=== PATIENT | female | born 1930 | race Caucasian/White ===

== ENCOUNTER 2017-02-10 13:22 | Emergency (ER) | payer MEDICARE, MEDICAID ==
--- NOTE | 2017-02-10 13:58 | RAD ---
FOUR VIEWS OF THE RIGHT KNEE: DATE: 02/10/17. HISTORY: Right leg pain following a fall. FINDINGS: The bones are demineralized. There is no displaced fracture or dislocation. There is no knee joint effusion. IMPRESSION: No displaced fracture or evidence of dislocation. POS: [facility]
[2017-02-10] MEDS ORDERED: Acetaminophen 500 MG TAB ONE ×2 (16:12)
[2017-02-10 17:55] LABS: #Lymphocytes 1.1 thou/uL (1.20-3.40); #Neutrophils 15.3 thou/uL (1.40-6.50); %Basophils 0.2 % (0.0-1.0); %Eosinophils 0.1 % (0.0-10.0); %Lymphocytes 6.4 % (21.0-51.0); %Monocytes 5.8 % (0.0-10.0); Hematocrit 34.2 % (36.0-47.0); Mean Platelet Volume 7.9 fL (7.4-10.4); Red Blood Cell (RBC) Count 3.55 mill/uL (4.20-5.40); White Blood Cell (WBC) Count 17.5 thou/uL (4.8-10.8)
[2017-02-10 18:17] LABS: ALT (SGPT) 19 U/L (8-55); AST (SGOT) 16 U/L (5-34); Alkaline Phosphatase 61 U/L (40-150); Anion Gap 13 mmol/L (10-20); BUN (Urea Nitrogen) 37 mg/dL (9.8-20.1); Calc. Creatinine Clearance 0 mL/min (70-130); Calcium 9.3 mg/dL (7.8-10.44); Carbon Dioxide 20 mmol/L (23-31); Chloride 102 mmol/L (98-107); Estimated GFR-MDRD 31; Globulin 2.5 g/dL (2.4-3.5); Protein, Total 6.3 g/dL (6.0-8.3)
[2017-02-10 18:47] LABS: Bilirubin Negative (Negative); Blood, Urine Negative (Negative); Glucose, Urine (Dipstick) Negative (Negative); Ketone, Urine Negative (Negative); Nitrite Negative (Negative); Protein, Urine (Dipstick) Negative (Neg-Trace); Urobilinogen 0.2 mg/dL (0.2-1.0)
--- NOTE | 2017-02-10 19:43 | RAD ---
AP CHEST: History: Trauma with chest pain. Date: 02-10-17 Comparison: 11-03-13 FINDINGS: There is a large hiatal hernia. The lungs are well aerated. No evidence of active intrathoracic disease seen. No evidence of effusion s, pneumonia or pneumothorax seen. IMPRESSION: Hiatal hernia, otherwise unremarkable AP view of the chest. POS: [facility]
== END 2017-02-10 21:10 ==
LOC: ERS 13:22
DX: S89.91XA Unspecified injury of right lower leg, initial encounter (principal); K21.9 Gastro-esophageal reflux disease without esophagitis; I10 Essential (primary) hypertension; V89.9XXA Person injured in unspecified vehicle accident, initial encounter
CPT/HCPCS: 36415; 51701; 71010; 80053; 81003; 85025; 87086; A4353

== ENCOUNTER 2017-02-18 11:09 | Outpatient (CLI) | payer MEDICARE, MEDICAID ==
--- NOTE | 2017-02-18 13:47 | RAD ---
RIGHT HIP TWO VIEWS: History: Right hip pain. Fracture. FINDINGS: Comminuted fracture extending from the greater to lesser trochanter includes multiple fragments, varu s angulation, and shortening. Osseous structures are demineralized. There is calcification in the art erial structures. IMPRESSION: 1. Comminuted intertrochanteric right hip fracture. 2. Osteoporosis. 3. Atherosclerosis. Findings were called to Dr. Quintana at 1140 hours. Code CR. POS: [facility]
== END 2017-02-18 11:10 | disposition home or self-care (01) ==
LOC: RAD 11:09
PROVIDERS: ATTEND Physical Medicine & Rehabilitation
DX: M25.551 Pain in right hip (principal); S72.091A Other fracture of head and neck of right femur, initial encounter for closed fracture; M81.0 Age-related osteoporosis without current pathological fracture; I70.90 Unspecified atherosclerosis

== ENCOUNTER 2017-02-18 11:59 | Inpatient (IN) | payer MEDICARE, MEDICAID ==
[~2017-02-18 11:59] MED LIST: Dexamethasone 20 MG/5 ML VIAL ONE; Lidocaine 1% PF 5 ML VIAL ONE; Ondansetron HCl/PF 4 MG/2 ML Vial ONE; PROPOFOL 200 MG/20 ML VIAL ONE; Succinylcholine Chloride 20 MG/ML 10 ml SYRINGE FS ONE; ePHEDrine/0.9% NaCl/PF SYRINGE 50 mg/10 ml ONE
[2017-02-18] MEDS ORDERED: Ondansetron HCl/PF 4 MG/2 ML Vial ONE (12:32)
[2017-02-18] MEDS ORDERED: Morphine 4 MG/ML VIAL ONE (12:32)
[2017-02-18 13:37] LABS: #Eosinphils 0.2 thou/uL (0.0-0.7); #Monocytes 0.9 thou/uL (0.11-0.59); #Neutrophils 6.5 thou/uL (1.40-6.50); %Basophils 0.4 % (0.0-1.0); %Eosinophils 1.9 % (0.0-10.0); %Lymphocytes 11.4 % (21.0-51.0); %Monocytes 10.6 % (0.0-10.0); %Neutrophils 75.7 % (42.0-75.0); Hemoglobin 9.2 g/dL (12.0-16.0); Mean Corpuscular HGB CONC 33.3 g/dL (32.0-36.0); Mean Corpuscular Hemoglobin 32.3 pg (27.0-31.0); Mean Corpuscular Volume 96.9 fl (81.0-99.0); Mean Platelet Volume 7.6 fL (7.4-10.4); Platelet Count 296 thou/uL (130-400); RBC Distribution Width 11.6 % (11.5-14.5); Red Blood Cell (RBC) Count 2.85 mill/uL (4.20-5.40); White Blood Cell (WBC) Count 8.6 thou/uL (4.8-10.8)
[2017-02-18 13:42] LABS: INR-International Normal Ratio 1.2; PTT 39.8 SEC (22.9-36.1); Prothrombin Time 15.7 SEC (12.0-14.7)
[2017-02-18 13:45] LABS: Anion Gap 10 mmol/L (10-20); BUN (Urea Nitrogen) 59 mg/dL (9.8-20.1); Calc. Creatinine Clearance 0 mL/min (70-130); Calcium 9.3 mg/dL (7.8-10.44); Carbon Dioxide 28 mmol/L (23-31); Chloride 91 mmol/L (98-107); Estimated GFR-MDRD 27; Glucose 122 mg/dL (83-110); Potassium 4.4 mmol/L (3.5-5.1); Sodium 125 mmol/L (136-145)
[2017-02-18 13:51] LABS: CKMB 1.7 ng/mL (0-6.6)
[2017-02-18] MEDS ORDERED: Fentanyl 100 MCG/2 ML VIAL ONE ×4 (14:26→18:51)
[2017-02-18] MEDS ORDERED: Labetalol HCl 100 MG/20 ML VIAL ONE (15:01)
[2017-02-18] MEDS ORDERED: CEFAZOLIN/Water 2 GM/20 ML SYRINGE ONE (16:57)
[2017-02-18] MEDS ORDERED: hydrALAZINE 20 MG/ML VIAL ONE (18:17)
--- NOTE | 2017-02-18 18:36 | HP ---
DATE OF ADMISSION: 02/18/2017 REQUESTING PHYSICIAN: Daphnie Recinos DO ATTENDING SURGEON: Bernardo Stephens M.D. CONSULTATIONS: Orthopedics, Luis Wilkinson M.D. HISTORY OF PRESENT ILLNESS: The patient is an 86-year-old woman who reportedly fell while transferring out of a vehicle last week. She reportedly fell and struck her right knee, was brought to the emergency department, evaluated and examined and was noted to have a contusion to her right kn ee. At that time, the patient had denied right hip pain. She was able to be placed in a rehab and o cezar the past several days, has had increasing right hip pain and was noted to have some significant e cchymosis on her right hip and a complaint now of significant right hip pain while trying to work wit h physical therapy. The patient was brought to the emergency department and underwent evaluation and is noted to have a right hip fracture which was displaced, at which time we were asked to admit the patient and obtain orthopedic consultations. According to rehabilitation records and history by the daughter, there was no report of repeat fall. ALLERGIES: None. CURRENT MEDICATIONS: Carvedilol, Cipro, clonidine, esomeprazole, fexofenadine, hydralazine, hydrochl orothiazide, loratadine, losartan, multivitamin, pantoprazole, and Kenalog. PAST MEDICAL HISTORY: Gastroesophageal reflux disease, colon cancer, hypertension. PAST SURGICAL HISTORY: Colon resection. SOCIAL HISTORY: The patient denies drug, alcohol, or tobacco use. Prior to her initial fall, she li mayra at home. She was currently residing in [facility] prior to this admissi on. REVIEW OF SYSTEMS: A 10-point review of systems was negative, unless otherwise stated. PHYSICAL EXAMINATION: VITAL SIGNS: Blood pressure 192/78, heart rate 68, respirations 18, oxygen saturation is 94% on room air. GENERAL: The patient is resting comfortably in the emergency room bed. She is awake and will answer some simple questions and follows simple commands. The daughter reports that she is significantly h clare of hearing and does not have the best recall which she has noticed over the past, has been declin ing having be repeatedly reminded of things and told things. HEENT: Head is normocephalic, atraumatic. Eyes: Extraocular motion intact. PERRLA bilaterally. E ars are atraumatic without discharge. Oropharynx is clear. Nose is atraumatic without discharge. NECK: Nontender. Trachea is midline. No JVD. CHEST: Clear to auscultation with moderate inspiratory and expiratory effort primarily due to patien t's ability to follow commands. ABDOMEN: Soft, flat, nontender. HEART: Regular rate and rhythm. PELVIS: Stable. EXTREMITIES: Right hip is noted to have a large area of ecchymosis and is tender to palpation to the right hip. The patient is neurovascularly intact distally and extremities are neurovascularly intac t x4. BACK: By report, back is nontender and atraumatic. LABORATORY FINDINGS: White blood cell count 8.6, hemoglobin 9.2, hematocrit 27.6, platelets 296. So dium 125, potassium 4.4, chloride 91, CO2 of 28, BUN 59, creatinine 1.81, glucose 122. PTT 40, PT 16 , INR 1.2. CK-MB 1.7, troponin 0.010. RADIOGRAPHIC FINDINGS: The right hip show a displaced intertrochanteric fracture. ASSESSMENT AND PLAN: 1. Status post ground level fall approximately one week ago. 2. Displaced right hip fracture. 3. Hyponatremia. 4. Acute pain due to trauma. 5. Deconditioning. Plan will be to admit the patient to the surgical floor, have her n.p.o., await evaluation and formal consultation by Orthopedics, pain control, pulmonary toilet, and gastritis and mechanical DVT prophy laxis. Evaluation, examination, laboratory and radiographic findings were all discussed with Dr. Logan griffin at the time of dictation, he was in agreement with this plan.
[2017-02-18] MEDS ORDERED: hydrALAZINE 20 MG/ML VIAL SLOW IVP SCH (18:45)
--- NOTE | 2017-02-18 20:29 | OP ---
DATE OF SURGERY: 02/18/2017. PREOPERATIVE DIAGNOSIS: Right intertrochanteric femur fracture, comminuted. POSTOPERATIVE DIAGNOSIS: Right intertrochanteric femur fracture, comminuted. SURGICAL PROCEDURE: TFN nail, right intertrochanteric fracture. ANESTHESIA: General. SURGEON: Luis Wilkinson M.D. BEVEL OPERATOR: None. IMPLANTS: Synthes TFN 12 x 170 mm nail with a 90 mm hip screw and a 5.0 mm distal cross lock screw. COMPLICATIONS: None. DRAINS: None. SPECIMEN: None. OUTCOME: Satisfactory. INDICATIONS: The patient is an 86-year-old lady who took a fall a week ago sustaining trauma to her right lower extremity. Earlier today x-rays were obtained while she was at a rehabilitation facility and she was found to have an intertrochanteric femur fracture. As such, she is transported to [facility] for orthopedic evaluation. DESCRIPTION OF PROCEDURE: The patient was brought to the operating room and appropriate timeout perf ormed, and then patient was positioned on the OR table after general anesthesia. The right leg was h eld in longitudinal traction with the left leg slightly scissored to allow for AP and lateral imaging . Next, a sterile prep and drape was performed on the right lateral thigh. A small skin incision wa s made proximal to the tip of the greater trochanter. After skin was sharply incised, dissection was carried down bluntly such that the tip of the trochanter could be palpated. A threaded guidewire wa s then passed from the tip of the greater trochanter into the proximal femoral canal. Once appropria tely positioned, the reaming device was passed over this guidewire further opening the proximal canal to accept the nail. Next, a 12 x 170 mm TFN nail was passed from the starting point into the proxim al femoral shaft. Once appropriately positioned, a second incision was made distal to the first and then the jig for the hip screw was inserted into the thigh. With C-arm guidance, she was positioned appropriately and then a threaded guidewire was passed from the lateral cortex of the femur up the fe moral neck and into the femoral head in a near center-center position. Next, measurement off the pin was used to determine the hip screw length of 90 mm. Reamer was then passed over the threaded guide wire. The 90 mm hip screw was then inserted without difficulty. The locking mechanism proximally cameron pierson engaged, then backed off a half turn to allow for sliding of the hip screw. The jig was then remov ed and then the triple sleeve was passed through the appropriate hole for distal cross-locking using the same distal skin incision. A single distal cross lock screw was inserted without difficulty. At the completion of this, all instruments were removed from the nail, then AP, lateral C-arm images we re obtained. The two incisions were irrigated with normal saline and then closed in layers with 2-0 Vicryl followed by simone. A Xeroform gauze and tape dressing was applied to the thigh and then pat ient was transported to recovery room in stable condition. Patient tolerated the procedure well. Th ere were no complications.
[2017-02-18] MEDS ORDERED: Morphine 4 MG/ML Carpuject IVP PRN (20:37)
[2017-02-18] MEDS ORDERED: Ondansetron HCl/PF 4 MG/2 ML Vial IVP PRN ×2 (20:37→21:22)
[2017-02-18] MEDS ORDERED: hydrALAZINE 20 MG/ML VIAL SLOW IVP PRN (20:37)
[2017-02-18] MEDS ORDERED: Dextrose 5% in Water 1,000 ML IV PRN (20:37)
[2017-02-18] MEDS ORDERED: Dextrose 50% Abboject 50 ML SYRINGE SLOW IVP PRN (20:37)
[2017-02-18] MEDS ORDERED: CEFAZOLIN/Water 2 GM/20 ML SYRINGE SLOW IVP SCH (20:37)
[2017-02-18] MEDS ORDERED: Ondansetron ODT 4 MG TAB PO PRN (20:37)
--- NOTE | 2017-02-18 20:46 | RAD ---
RIGHT HIP RADIOGRAPHS TWO VIEWS 02/18/17 PROVIDED CLINICAL HISTORY: ORIF. FINDINGS: Comparison 02/18/17. Spot fluoroscopic frontal and lateral views of the right hip demonstrate interval reduction and inter nal fixation of previously described right proximal femoral intertrochanteric fracture with resultant improved alignment. IMPRESSION: As above. POS: [facility]
[2017-02-18] MEDS ORDERED: Famotidine 20 MG TAB PO SCH (21:00)
[2017-02-18] MEDS ORDERED: Morphine 4 MG/ML VIAL IV PRN (21:15)
[2017-02-18] MEDS ORDERED: Promethazine HCl 25 MG/ML VIAL SLOW IVP PRN (21:22)
[2017-02-18] MEDS ORDERED: Promethazine HCl 25 MG/ML VIAL IM PRN (21:22)
[2017-02-18] MEDS: Morphine 4 MG/ML VIAL IV PRN (21:25)
[2017-02-18] MEDS ORDERED: CEFAZOLIN 1 GM VIAL SLOW IVP SCH (22:00)
[2017-02-19] MEDS: Morphine 4 MG/ML VIAL IV PRN (01:19)
[2017-02-19] MEDS: CEFAZOLIN 1 GM, Syringe 2.5 ML in Sterile Water 7.5 ML SLOW IVP SCH ×4 (01:20→18:50)
[2017-02-19 04:55] VITALS: BMI 20.1
[2017-02-19] MEDS: Sodium Chloride 0.9% 1,000 ML IV SCH ×2 (05:13→05:23)
[2017-02-19 06:17] LABS: #Basophils 0.1 thou/uL (0.0-0.2); #Lymphocytes 0.5 thou/uL (1.20-3.40); #Monocytes 0.6 thou/uL (0.11-0.59); #Neutrophils 6.8 thou/uL (1.40-6.50); %Basophils 0.7 % (0.0-1.0); %Eosinophils 0.4 % (0.0-10.0); %Lymphocytes 5.6 % (21.0-51.0); %Monocytes 7.7 % (0.0-10.0); %Neutrophils 85.6 % (42.0-75.0); Mean Corpuscular HGB CONC 33.7 g/dL (32.0-36.0); Mean Corpuscular Hemoglobin 33.1 pg (27.0-31.0); Mean Corpuscular Volume 98.4 fl (81.0-99.0); Mean Platelet Volume 7.4 fL (7.4-10.4); Platelet Count 281 thou/uL (130-400); RBC Distribution Width 11.8 % (11.5-14.5); Red Blood Cell (RBC) Count 2.73 mill/uL (4.20-5.40)
[2017-02-19 06:37] LABS: Anion Gap 13 mmol/L (10-20); BUN (Urea Nitrogen) 44 mg/dL (9.8-20.1); Calc. Creatinine Clearance 22 mL/min (70-130); Calcium 8.6 mg/dL (7.8-10.44); Carbon Dioxide 22 mmol/L (23-31); Chloride 100 mmol/L (98-107); Estimated GFR-MDRD 34; Glucose 120 mg/dL (83-110); Potassium 4.9 mmol/L (3.5-5.1); Sodium 130 mmol/L (136-145)
[2017-02-19] MEDS: Ibuprofen 200 MG TAB PO SCH ×2 (11:45→20:56)
[2017-02-19] MEDS: Acetaminophen 500 MG TAB PO SCH ×4 (11:45→22:59)
[2017-02-19] MEDS: traMADol HCl 50 MG TAB PO PRN (17:55)
--- NOTE | 2017-02-19 18:50 | PRG ---
DATE OF SERVICE: 02/19/2017 SUBJECTIVE: The patient is hospital day #2 status post ground level fall where she sustained a right hip fracture. The patient is postop day #1 status post open reduction and internal fixation of the same. She tolerated this procedure well today. She is in bed. Her pain is controlled. She is tole rating a diet. The patient has not started to work with physical therapy yet, but that is expected t o begin today. PHYSICAL EXAMINATION: VITAL SIGNS: Temperature is 97.8, heart rate 77, blood pressure 131/68, respirations 16, oxygen satu ration is 100% on 2 L via nasal cannula. GENERAL: The patient is resting comfortably in bed. She is awake and she is answering some very sim ple questions when spoken very loudly. The patient states that she is not in any pain currently. HEENT: Unremarkable. CHEST: Clear to auscultation bilaterally. HEART: Regular rate and rhythm. ABDOMEN: Soft, flat, nontender with active bowel sounds. EXTREMITIES: Neurovascularly intact x4. LABORATORY FINDINGS: White blood cell count 8.0, hemoglobin 9.0, hematocrit 26.8, platelets 281. So dium 130, potassium 4.9, chloride 100, CO2 of 22, BUN 44, creatinine 1.45, glucose 120. There are no radiographs to review this morning. ASSESSMENT AND PLAN: 1. Status post ground level fall approximately 1 week ago that has became displaced and the patient now has undergone open reduction and internal fixation of the same. 2. Hyponatremia, resolving. 3. Acute pain, currently controlled. Plan will be to continue physical and occupational therapy. The case workers discussed placement of the patient in a skilled facility versus rehabilitation. Gastritis, mechanical DVT prophylaxis. We will plan to start Lovenox tomorrow. The evaluation and examination were discussed with Dr. Stephens after rounds.
[2017-02-19] MEDS: Famotidine 20 MG TAB PO SCH (20:57)
[2017-02-20] MEDS: Acetaminophen 500 MG TAB PO SCH ×7 (03:51→22:54)
[2017-02-20] MEDS: Ibuprofen 200 MG TAB PO SCH ×3 (03:51→19:58)
--- NOTE | 2017-02-20 11:49 | PRG ---
DATE OF SERVICE: 02/20/2017 SUBJECTIVE: The patient is hospital day #3 status post ground level fall in which she sustained a ri ght hip fracture. She is postop day #2 from open reduction internal fixation of the same. The patie nt has had no issues overnight. This morning, she is sleeping, but will open her eyes when I speak l oudly to her. PHYSICAL EXAMINATION: VITAL SIGNS: Temperature is 97.7, heart rate 75, blood pressure 149/56, respirations 12, oxygen satu ration is 96% on 2 liters via nasal cannula. GENERAL: The patient appears to be resting comfortably in bed. Again, she will open her eyes with l oud verbal stimuli and will follow very simple commands and answer primarily by nodding her head whic h appears to be her baseline. HEENT: Unremarkable. LUNGS: Clear to auscultation with shallow breaths. HEART: Regular rate and rhythm. ABDOMEN: Soft, flat, nontender with hypoactive bowel sounds. EXTREMITIES: Capillary refill less than 3 seconds. Pulses are 2+ in all 4 extremities. LABORATORY DATA: Radiographs were reviewed this morning. ASSESSMENT: 1. Status post ground level fall that occurred one week prior to presentation. 2. Status post open reduction internal fixation of hip fracture. PLAN: Continue physical and occupational therapy and await placement. The family is looking at a [facility] care home facility and we are hoping to get approval of that either today or tomorrow. We will continue all supportive care as previously directed. This case was discussed with Dr. Stephens this morning during rounds.
[2017-02-20] MEDS: traMADol HCl 50 MG TAB PO PRN ×2 (15:44→22:55)
[2017-02-20] MEDS: Famotidine 20 MG TAB PO SCH (20:02)
[2017-02-20] MEDS: hydrALAZINE 25 MG TAB PO SCH (20:02)
[2017-02-20] MEDS ORDERED: Enoxaparin Sodium 30 MG/0.3 ML SYRINGE SC SCH (21:00)
[2017-02-21] MEDS: Acetaminophen 500 MG TAB PO SCH ×2 (03:15→06:58)
[2017-02-21] MEDS: Ibuprofen 200 MG TAB PO SCH (03:55)
[2017-02-21 06:24] LABS: #Basophils 0.1 thou/uL (0.0-0.2); #Eosinphils 0.1 thou/uL (0.0-0.7); #Lymphocytes 1.4 thou/uL (1.20-3.40); #Monocytes 0.8 thou/uL (0.11-0.59); #Neutrophils 4.4 thou/uL (1.40-6.50); %Basophils 0.9 % (0.0-1.0); %Eosinophils 2.1 % (0.0-10.0); %Lymphocytes 20.2 % (21.0-51.0); %Monocytes 12.1 % (0.0-10.0); %Neutrophils 64.8 % (42.0-75.0); Mean Corpuscular HGB CONC 33.9 g/dL (32.0-36.0); Mean Corpuscular Hemoglobin 33.6 pg (27.0-31.0); Mean Corpuscular Volume 99.1 fl (81.0-99.0); Platelet Count 279 thou/uL (130-400); Red Blood Cell (RBC) Count 2.39 mill/uL (4.20-5.40); White Blood Cell (WBC) Count 6.8 thou/uL (4.8-10.8)
[2017-02-21 06:49] LABS: Anion Gap 10 mmol/L (10-20); BUN (Urea Nitrogen) 32 mg/dL (9.8-20.1); Calc. Creatinine Clearance 26 mL/min (70-130); Calcium 8.6 mg/dL (7.8-10.44); Carbon Dioxide 25 mmol/L (23-31); Chloride 102 mmol/L (98-107); Estimated GFR-MDRD 41; Glucose 89 mg/dL (83-110); Magnesium 1.7 mg/dL (1.6-2.6); Phosphorus 2.9 mg/dL (2.3-4.7); Potassium 4.1 mmol/L (3.5-5.1); Sodium 133 mmol/L (136-145)
[2017-02-21 08:26] VITALS: BP 150/66; TEMP 98
[2017-02-21] MEDS ORDERED: Carvedilol 25 MG TAB PO SCH (09:00)
[2017-02-21] MEDS ORDERED: Hydrochlorothiazide 25 MG TAB PO SCH (09:00)
--- NOTE | 2017-02-21 09:07 | PQF ---
CLINICAL DOCUMENTATION IMPROVEMENT CLARIFICATION FORM: ICD-10 Updated PLEASE DO AN ADDENDUM TO THE PROGRESS NOTE WITH ANY DOCUMENTATION UPDATES OR ADDITIONS AND CARRY THROUGH TO DC SUMMARY. THANK YOU. DATE: 02/21 ATTN: DR. MUÑOZ Please exercise your independent, professional judgment in responding to the clarification form. Clinical indicators are provided on the bottom of this form for your review Please check appropriate box(s): [ ] Acute Renal Failure (ARF) / Acute Kidney Injury (SULY) [ ] Other Etiology or underlying conditions related to the diagnosis of ARF/ SULY: [ ] Acute on Chronic Renal Failure please specify Stage of CKD (see below) [ ] CKD without ARF/SULY please specify Stage of CKD [ x ] Other diagnosis Dehydration causing elevated creatitine, normal before DC [ ] Unable to determine National Kidney Foundation Guidelines for CKD Staging Stage I Kidney damage with normal or increased GFR GFR > 90 Stage II Kidney damage with mildly decreased GFR GFR 60-89 Stage III Kidney damage with moderately decreased GFR GFR 30-59 Stage IV Kidney damage with severely decreased GFR GFR 16-29 Stage V Kidney failure GFR<15 ESRD End Stage Renal Disease On dialysis For continuity of documentation, please document condition throughout progress notes and discharge summary. Thank You. CLINICAL INDICATORS - SIGNS / SYMPTOMS / LABS BUN: 59 CR: 1.81 GFR: 27 (02/18, ADMIT) 44 1.45 34 (02/19) 32 1.24 32 (02/21) RISK: R HIP FRACTURE S/P REPAIR ADVANCED AGE HX HTN TREATMENT: IVF (NS 02/18 - ) SERIAL BMP THANK YOU! Cecilia (This form is maintained as a part of the permanent medical record) 2014 [employer]. All Rights Reserved Cecilia Nagy RN, BSN [email or web address] Office: [phone] [facility]
[2017-02-21] MEDS: hydrALAZINE 25 MG TAB PO SCH (09:37)
--- NOTE | 2017-02-21 14:11 | DIS ---
DATE OF ADMISSION: 02/18/2017 DATE OF DISCHARGE: 02/21/2017 CONSULTATIONS: Orthopedics, Dr. Wilkinson PROCEDURES: TFN nail, right intertrochanteric fracture. DISCHARGE DIAGNOSES: 1. Status post ground level fall approximately 1 week ago. 2. Displaced right hip fracture. 3. Hyponatremia. 4. Acute pain due to trauma. 5. Deconditioning. HOSPITAL SUMMARY: The patient is an 86-year-old woman who was reportedly transferring from a vehicle to her wheelchair when she fell landing on her knees. She was brought to the Emergency Department, evaluated, examined that day, primarily her knee which was her chief complaint, was found to be unrem arkable. The patient would be admitted to the rehab facility and after a few days, continued to have pain that radiated to her hip and it was noted during her nursing care that she had a contusion to h er right hip. She underwent a radiograph which showed a displaced right femoral neck fracture at [facility] time she was transported here to the hospital for us to admit and obtain orthopedic consultation. The patient would undergo her above procedure. She tolerated this procedure well and would eventual ly be discharged to a fci facility. At the time of discharge, the patient's pain was con trolled. She was tolerating a diet, but she was making minimal advancements in physical therapy so m oving her to a fci facility was agreed upon by the family and we made that happened. The patient will follow up with Dr. Wilkinson in 10-14 days, sooner as needed. The patient may also foll ow up with Trauma as needed.
--- NOTE | 2017-03-01 13:49 | EKG ---
Test Reason : FALL Blood Pressure : / mmHG Vent. Rate : 068 BPM Atrial Rate : 068 BPM P-R Int : 146 ms QRS Dur : 086 ms QT Int : 412 ms P-R-T Axes : 092 026 068 degrees QTc Int : 438 ms Normal sinus rhythm Junctional ST depression, probably normal Borderline ECG Confirmed by MARIAELENA PEARSON ([id number]), scientific publications editor MARCO TALBERT ([id number]) on 03/01/2017 1:49:07 PM Referred By: MICHEL Confirmed By:MARIAELENA PEARSON
== END 2017-02-21 10:49 | DRG 481 ==
LOC: ERS 11:59 → SURG A 20:24
PROVIDERS: ADMIT Surgery; ATTEND Surgery
PROC: 0QS604Z Reposition Right Upper Femur with Internal Fixation Device, Open Approach (ICD-10-PCS; principal; 2017-02-18)
DX: S72.141A Displaced intertrochanteric fracture of right femur, initial encounter for closed fracture (principal); E87.1 Hypo-osmolality and hyponatremia; I10 Essential (primary) hypertension; K21.9 Gastro-esophageal reflux disease without esophagitis; Z85.038 Personal history of other malignant neoplasm of large intestine; Z90.49 Acquired absence of other specified parts of digestive tract; W18.30XA Fall on same level, unspecified, initial encounter; G89.11 Acute pain due to trauma
CPT/HCPCS: 36415; 76001; 80048; 82553; 83735; 84100; 84484; 85025; 85610; 85730; 93005; 96374; 96375; A4216; C1713; G0390; G8978-GP-CL; G8979-GP-CK; G8987-GO-CL; G8988-GO-CJ; J0360; J0690; J1100; J1650; J2001; J2270; J2405; J2704; J3010

== ENCOUNTER 2017-03-11 16:11 | Inpatient (IN) | payer MEDICARE, MEDICAID ==
[2017-03-11 17:32] LABS: #Eosinphils 0.2 thou/uL (0.0-0.7); #Lymphocytes 0.9 thou/uL (1.20-3.40); #Monocytes 0.6 thou/uL (0.11-0.59); #Neutrophils 3.9 thou/uL (1.40-6.50); %Basophils 0.6 % (0.0-1.0); %Eosinophils 3.5 % (0.0-10.0); %Lymphocytes 16.4 % (21.0-51.0); %Neutrophils 68.4 % (42.0-75.0); Hemoglobin 9.7 g/dL (12.0-16.0); Mean Corpuscular HGB CONC 32.8 g/dL (32.0-36.0); Mean Corpuscular Hemoglobin 32.8 pg (27.0-31.0); Mean Platelet Volume 6.9 fL (7.4-10.4); Platelet Count 332 thou/uL (130-400); RBC Distribution Width 12.2 % (11.5-14.5); Red Blood Cell (RBC) Count 2.96 mill/uL (4.20-5.40); White Blood Cell (WBC) Count 5.7 thou/uL (4.8-10.8)
[2017-03-11 17:39] LABS: INR-International Normal Ratio 1.3; Prothrombin Time 16.1 SEC (12.0-14.7)
[2017-03-11 17:40] LABS: PTT 46.2 SEC (22.9-36.1)
[2017-03-11 18:03] LABS: ALT (SGPT) 8 U/L (8-55); AST (SGOT) 9 U/L (5-34); Albumin 3.4 g/dL (3.4-4.8); Alkaline Phosphatase 110 U/L (40-150); Anion Gap 11 mmol/L (10-20); BUN (Urea Nitrogen) 25 mg/dL (9.8-20.1); Bilirubin, Total 0.4 mg/dL (0.2-1.2); Calc. Creatinine Clearance 0 mL/min (70-130); Calcium 9.1 mg/dL (7.8-10.44); Carbon Dioxide 26 mmol/L (23-31); Chloride 102 mmol/L (98-107); Estimated GFR-MDRD 41; Globulin 2.6 g/dL (2.4-3.5); Glucose 78 mg/dL (83-110); Sodium 135 mmol/L (136-145)
[2017-03-11 18:50] LABS: Bilirubin Negative (Negative); Blood, Urine Negative (Negative); Clarity CLOUDY (Clear); Glucose, Urine (Dipstick) Negative (Negative); Leukocyte Moderate (Negative); Nitrite Negative (Negative); Protein, Urine (Dipstick) Negative (Neg-Trace); Specific Gravity, Urine 1.012 (1.002-1.036); Urobilinogen 0.2 mg/dL (0.2-1.0)
[2017-03-11 18:52] LABS: Hyaline Casts/LPF 0-3 HYALINE CAST LPF (0-3 Hyaline); RBC/HPF 0-3 HPF (0-3); Squamous Epithelial None Seen HPF (0-3); WBC/HPF 21-50 HPF (0-3)
[2017-03-11 18:54] LABS: Yeast-AUWi Flag 46.6 (0-25.0)
[2017-03-11 19:06] LABS: Bacteria/HPF 1+ HPF (None Seen); Yeast-All Forms 1+ HPF (None Seen)
[2017-03-11] MEDS ORDERED: Ondansetron ODT 4 MG TAB PO PRN (20:09)
[2017-03-11] MEDS ORDERED: FLU VACC TS2017-18 (>65YR) 0.5 ML SYRINGE IM ONE (21:00)
[2017-03-11] MEDS: Acetaminophen 500 MG TAB PO SCH (22:10)
[2017-03-11] MEDS: Ferrous Sulfate 325 MG TAB PO SCH (22:10)
[2017-03-11] MEDS: hydrALAZINE 25 MG TAB PO SCH (22:10)
[2017-03-11] MEDS: traZODone HCl 50 MG TAB PO SCH (22:11)
[2017-03-12] MEDS: Sodium Chloride 0.9% 1,000 ML IV SCH ×3 (01:07→15:14)
[2017-03-12] MEDS: Acetaminophen 500 MG TAB PO SCH ×6 (01:07→20:35)
[2017-03-12] MEDS: traMADol HCl 50 MG TAB PO PRN (01:07)
[2017-03-12] MEDS: Carvedilol 25 MG TAB PO SCH (05:49)
[2017-03-12] MEDS: hydrALAZINE 25 MG TAB PO SCH ×2 (09:13→20:35)
[2017-03-12] MEDS: Hydrochlorothiazide 25 MG TAB PO SCH (09:13)
[2017-03-12] MEDS: Ferrous Sulfate 325 MG TAB PO SCH ×2 (09:14→20:35)
[2017-03-12] MEDS ORDERED: Fentanyl 100 MCG/2 ML VIAL ONE ×2 (12:25→14:12)
[2017-03-12] MEDS ORDERED: Propofol 200 MG/20 ML VIAL ONE (13:42)
[2017-03-12] MEDS ORDERED: ePHEDrine/0.9% NaCl/PF SYRINGE 50 mg/10 ml ONE (13:42)
[2017-03-12] MEDS ORDERED: Lidocaine 1% PF 5 ML VIAL ONE (13:42)
[2017-03-12] MEDS ORDERED: Ondansetron HCl/PF 4 MG/2 ML Vial ONE (13:42)
[2017-03-12] MEDS ORDERED: Promethazine HCl 25 MG/ML VIAL SLOW IVP PRN (14:07)
[2017-03-12] MEDS ORDERED: Ondansetron HCl/PF 4 MG/2 ML Vial IVP PRN (14:07)
[2017-03-12] MEDS ORDERED: Promethazine HCl 25 MG/ML VIAL IM PRN (14:07)
[2017-03-12] MEDS: cefTRIAXone\\ROCEPHIN 2 GM in Sodium Chloride 0.9% 100 ML IVPB SCH (15:13)
--- NOTE | 2017-03-12 15:52 | OP ---
DATE OF PROCEDURE: 03/12/2017 PREOPERATIVE DIAGNOSIS: Right lateral thigh infection status post insertion of a TFN nail. POSTOPERATIVE DIAGNOSIS: Right lateral thigh infection status post insertion of a TFN nail. SURGICAL PROCEDURE: Incision and drainage of right subcutaneous thigh abscess. ANESTHESIA: General. SURGEON: Lusi Wilkinson M.D. DRAINS: Hemovac x1. COMPLICATIONS: None. SPECIMEN: Aspirate as well as swabs x2 sent for Gram stain culture and sensitivity. OUTCOME: Satisfactory. INDICATIONS: Patient is a pleasant 87-year-old lady who is now nearly a month status post right TFN placement for an intertrochanteric femur fracture. The patient had an uncomplicated hospital course and was doing well in her fdc facility until approximately 1 week ago when she began to d evelop some serous drainage from the proximal insertion site of the nail. On evaluation, she was fou nd to have some mild edema of the skin and some serosanguineous drainage. Her white count was only 5 .7, however, her C-reactive protein was elevated in light of the ongoing drainage, now months followi ng surgery, we decided to proceed to the operating room for incision and drainage and irrigation. In formed consent has been obtained and all questions answered. DESCRIPTION OF PROCEDURE: The patient was brought to the operating room and timeout performed then g eneral anesthesia induced. Next, the patient was positioned supine with just a slight bump under the right hip to allow for sterile prep and drape of the right lateral thigh. Next, a scalpel was used to open up the previous skin incision site. Once opened, some very minor amount of cervical purulent material was encountered in the subcutaneous tissue. My finger was swept in the wound and there was found to be no other areas of infection and this did not appear to violate the fascia of the gluteus . As such, this was then irrigated with 3 liters of normal saline. A final inspection was performed and no necrotic material was encountered. As such, a Hemovac drain was then placed and then 2-0 Felipe ryl followed by nylon used for skin closure. A Xeroform gauze and tape dressing was applied to the t high and patient was transferred to recovery room in stable condition. She tolerated the procedure w ell. We will await the cultures and then proceed with appropriate antibiotic treatment for this supe rficial infection.
[2017-03-12 19:39] VITALS: BMI 25.4
[2017-03-12] MEDS ORDERED: Labetalol HCl 100 MG/20 ML VIAL SLOW IVP PRN (20:05)
--- NOTE | 2017-03-12 20:05 | PDOC.PN ---
- Subjective Encounter Start Date: 03/12/17 Encounter Start Time: 20:03 Pt seen for management of medical comorbidities including hypertension. Denies chest pain, shortness of breath, fevers or chills. Denies hip pain. - Objective MAR Reviewed: Yes Vital Signs & Weight: Vital Signs (12 hours) Temp Pulse Resp BP BP Pulse Ox 03/12/17 16:20 98.2 F 85 18 163/72 H 96 03/12/17 14:50 97.9 F 69 16 97 03/12/17 09:13 91 150/55 H Weight Weight 148 lb I&O: 03/11/17 03/12/17 03/13/17 06:59 06:59 06:59 Intake Total 690 1300 Output Total 1000 Balance -310 1300 Result Diagrams: 03/11/17 17:23 03/11/17 17:23 Phys Exam - Physical Examination Constitutional: NAD HEENT: moist MMs Neck: supple Respiratory: clear to auscultation bilateral Cardiovascular: RRR Gastrointestinal: soft s/p R hip surgery Neurological: moves all 4 limbs Psychiatric: normal affect Dx/Plan (1) HTN (hypertension) Code(s): I10 - ESSENTIAL (PRIMARY) HYPERTENSION Status: Chronic (2) GERD (gastroesophageal reflux disease) Code(s): K21.9 - GASTRO-ESOPHAGEAL REFLUX DISEASE WITHOUT ESOPHAGITIS Status: Chronic (3) Glaucoma Code(s): H40.9 - UNSPECIFIED GLAUCOMA Status: Chronic - Plan plan discussed w/ family, continue antibiotics, PT/OT, out of bed/ambulate * .Monitor vital signs, titrate antihypertensives as needed. Start PRN IV hydralazine, PRN IV labetalol. Continue PPI. Review of Systems - Review of Systems Cardiovascular: negative: chest pain, palpitations, orthopnea, paroxysmal nocturnal dyspnea, edema, light headedness, other Gastrointestinal: negative: Nausea, Vomiting, Abdominal Pain, Diarrhea, Constipation, Melena, Hematochezia - Medications/Allergies Allergies/Adverse Reactions: Allergies Allergy/AdvReac Type Severity Reaction Status Date / Time No Known Allergies Allergy Unverified 02/19/17 11:18 Medications: Current Medications Acetaminophen (Tylenol) 500 mg PO Q4HR [facility] Last Admin: 03/12/17 17:01 Dose: 500 mg Albuterol/Ipratropium (Duoneb) 3 ml NEB Q4H PRN PRN Reason: SOB &/or Wheezing Carvedilol (Coreg) 25 mg PO QAM [facility] Last Admin: 03/12/17 05:49 Dose: 25 mg Ferrous Sulfate (Feosol) 325 mg PO BID [facility] Last Admin: 03/12/17 09:14 Dose: 325 mg Hydralazine HCl (Apresoline) 25 mg PO BID [facility] Last Admin: 03/12/17 09:13 Dose: 25 mg Hydralazine HCl (Apresoline) 10 mg SLOW IVP Q8H PRN PRN Reason: SBP>170 Hydrochlorothiazide (Hydrochlorothiazide) 25 mg PO DAILY [facility] Last Admin: 03/12/17 09:13 Dose: 25 mg Sodium Chloride (Normal Saline 0.9%) 1,000 mls @ 75 mls/hr IV .[id number] [facility] Last Admin: 03/12/17 15:14 Dose: 1,000 mls Ceftriaxone Sodium 2 gm/ (Sodium Chloride) 100 mls @ 200 mls/hr IVPB Q24HR [facility] Last Admin: 03/12/17 15:13 Dose: 100 mls Vancomycin HCl 750 mg/ Sodium (Chloride) 250 mls @ 250 mls/hr IVPB 2000 [facility] Miscellaneous Medication (Pharmacy To Dose) 1 each IVPB PRN PRN PRN Reason: . Olmesartan (Benicar) 40 mg PO DAILY [facility] Last Admin: 03/12/17 09:13 Dose: 40 mg Ondansetron HCl (Zofran Odt) 4 mg PO Q6H PRN PRN Reason: Nausea/Vomiting Pantoprazole Sodium (Protonix) 40 mg PO DAILY [facility] Last Admin: 03/12/17 09:14 Dose: 40 mg Sodium Chloride (Flush - Normal Saline) 10 ml IVF Q12HR [facility] Last Admin: 03/12/17 09:14 Dose: Not Given Sodium Chloride (Flush - Normal Saline) 10 ml IVF PRN PRN PRN Reason: Saline Flush Tramadol HCl (Ultram) 50 mg PO Q6H PRN PRN Reason: Pain Last Admin: 03/12/17 01:07 Dose: 50 mg Trazodone HCl (Desyrel) 25 mg PO HS [facility] Last Admin: 03/11/17 22:11 Dose: 25 mg
[2017-03-12] MEDS: Vancomycin HCl 750 MG in Sodium Chloride 0.9% 250 ML 250 ML IVPB SCH (20:35)
[2017-03-12] MEDS: traZODone HCl 50 MG TAB PO SCH (20:36)
[2017-03-12] MEDS ORDERED: diphenhydrAMINE 50 MG/ML VIAL IVP SCH (23:00)
[2017-03-13] MEDS: Acetaminophen 500 MG TAB PO SCH ×6 (00:14→20:11)
[2017-03-13] MEDS: Sodium Chloride 0.9% 1,000 ML IV SCH ×2 (00:19→16:47)
[2017-03-13] MEDS: Hydrochlorothiazide 25 MG TAB PO SCH (08:31)
[2017-03-13] MEDS: Carvedilol 25 MG TAB PO SCH (08:32)
[2017-03-13] MEDS: Ferrous Sulfate 325 MG TAB PO SCH ×2 (08:32→20:12)
[2017-03-13] MEDS: hydrALAZINE 25 MG TAB PO SCH ×2 (08:32→20:11)
--- NOTE | 2017-03-13 12:59 | CON ---
DATE OF CONSULTATION: 03/13/2017 REASON FOR CONSULTATION: Right ORIF fixation site infection. HISTORY OF PRESENT ILLNESS: An 87-year-old patient who has a history of hypertension and colon cance r after chemotherapy and surgical resection in the past, who has a history of recurrent falls in the past. Her latest event happened the week before the previous admission in January when she was chu sferring out of vehicle and fell, struck her right lower extremity. Initial evaluation was focused o n the area of pain which was the right knee and the hip at that time had not been x-rayed. She had b een transferred to rehab and eventually there was an obvious area of bruising in the posterior aspect of the right thigh. Attention was directed to the right hip and the fracture was identified in that opportunity. That led to readmission to the hospital and management for the right intertrochanteric femur fracture was carried out with TNF nail. Subsequently, the patient developed drainage inflamma tory process from the site and had been in a usp unit and then developed some drainage, m ild edema. In view of the findings and elevation CRP, she was taken to the operating room. The scal pel was used to open the previous incision site, moderate amount of seropurulent material was removed from the site. There is no evidence of other areas of penetration and there is no violation of the facial layer. This area was irrigated. No necrosis is noted. A drain was left in place. REVIEW OF SYSTEMS: Currently, the patient is awake. She has significant disorientation and has obvi ous cognitive impairment. She denies any headaches, no chest pain, no abdominal pain or diarrhea. V oiding without difficulty. PAST MEDICAL HISTORY: Includes hypertension; colon cancer with chemotherapy, in remission after rese ction; GERD; glaucoma; episodes of falls with prior fractures; recent hip fracture with open reductio n internal fixation. ALLERGIES: No known drug allergies. CURRENT MEDICATIONS: Include Tylenol, DuoNeb, Coreg, ceftriaxone, Feosol, vancomycin, and IV fluids. SOCIAL HISTORY: Never a smoker. Lives in a [facility]p facility. FAMILY HISTORY: Gastric cancer. PHYSICAL EXAMINATION: VITAL SIGNS: Temperature has been normal. BP 150/70, pulse 91. SKIN: Shows operative site with usual appearance with a drain in place. Peripheral IV access. No F oley catheter. NECK: No lymphadenopathy. HEENT: The patient has artificial dentures. NECK: Supple. LUNGS: With symmetric clear breath sounds. HEART: S1, S2, regular rate. No S3, S4. ABDOMEN: Soft, not distended or tender. No ascites. No bladder distention. EXTREMITIES: Quite a bit of degenerative joint disease in lower extremities. Pulses are 1+ in dorsa lis pedis. NEUROLOGIC: Plantar responses are flexor. She is awake, knows her name, recognize her daughter, but could not tell me where she was or the date. LABORATORY DATA: Cultures from the site 3 different samples with Staphylococcus aureus pending susce ptibilities. White cell count 5.7, hemoglobin 9.7, and platelets 332 with 68% neutrophils. INR 1.3. Sodium 135, creatinine 1.25. GFR 41, glucose 78. Liver profile normal. CRP 7.3. Urinalysis 21-5 0 wbc's. IMAGING STUDIES: There is a hip x-ray from 02/18/2017 with reduction and fixation procedure and a ch est x-ray from 02/10/2017 with no remarkable findings. ASSESSMENT: 1. Colon cancer in remission. 2. Recurrent falls associated with cognitive impairment. 3. Fracture, right hip, status post open reduction internal fixation. 4. Superficial infection of the right hip surgical site with Staphylococcus aureus with pending susc eptibilities. DISCUSSION: The surgical findings indicate a superficial infectious process and will wait on the fin al identification of the organism susceptibility and then determine antimicrobial therapy, which will likely be oral antimicrobial given for a limited period of time, probably not more than 2 weeks. Th e patient still at risk for more involved complication if in fact there is penetration into the deepe r structures and evidently this is still possible although less likely and I have discussed with debbie almonte what to look for in the future particularly recrudescence of swelling, drainage, and so on.
--- NOTE | 2017-03-13 14:22 | PDOC.PN ---
- Subjective Encounter Start Date: 03/13/17 Encounter Start Time: 07:40 Pt seen for followup re: hypertension. Denies any complaints. - Objective MAR Reviewed: Yes Vital Signs & Weight: Vital Signs (12 hours) Temp Pulse Resp BP Pulse Ox 03/13/17 12:05 98.7 F 84 16 146/77 H 95 03/13/17 09:00 153/71 H 03/13/17 08:32 91 03/13/17 08:15 98.9 F 91 16 97 03/13/17 07:55 98.9 F 91 16 168/73 H 97 03/13/17 04:43 98.4 F 81 16 165/68 H 96 Weight Weight 148 lb I&O: 03/12/17 03/13/17 03/14/17 06:59 06:59 06:59 Intake Total 690 2300 Output Total 1000 10 Balance -310 2290 Result Diagrams: 03/11/17 17:23 03/11/17 17:23 Phys Exam - Physical Examination Constitutional: NAD HEENT: moist MMs Neck: supple Respiratory: clear to auscultation bilateral Cardiovascular: RRR Gastrointestinal: soft Neurological: moves all 4 limbs s/p R hip surgery Psychiatric: normal affect Dx/Plan (1) HTN (hypertension) Code(s): I10 - ESSENTIAL (PRIMARY) HYPERTENSION Status: Chronic (2) GERD (gastroesophageal reflux disease) Code(s): K21.9 - GASTRO-ESOPHAGEAL REFLUX DISEASE WITHOUT ESOPHAGITIS Status: Chronic (3) Glaucoma Code(s): H40.9 - UNSPECIFIED GLAUCOMA Status: Chronic - Plan continue antibiotics, PT/OT, out of bed/ambulate * . PRN IV hydralazine/ labetalol. Continue PPI. Review of Systems - Review of Systems Cardiovascular: negative: chest pain, palpitations, orthopnea, paroxysmal nocturnal dyspnea, edema, light headedness Gastrointestinal: negative: Nausea, Vomiting, Abdominal Pain, Diarrhea, Constipation, Melena, Hematochezia - Medications/Allergies Allergies/Adverse Reactions: Allergies Allergy/AdvReac Type Severity Reaction Status Date / Time No Known Allergies Allergy Unverified 02/19/17 11:18 Medications: Current Medications Acetaminophen (Tylenol) 500 mg PO Q4HR [facility] Last Admin: 03/13/17 13:54 Dose: Not Given Albuterol/Ipratropium (Duoneb) 3 ml NEB Q4H PRN PRN Reason: SOB &/or Wheezing Carvedilol (Coreg) 25 mg PO QAM [facility] Last Admin: 03/13/17 08:32 Dose: 25 mg Ferrous Sulfate (Feosol) 325 mg PO BID [facility] Last Admin: 03/13/17 08:32 Dose: 325 mg Hydralazine HCl (Apresoline) 25 mg PO BID [facility] Last Admin: 03/13/17 08:32 Dose: 25 mg Hydralazine HCl (Apresoline) 10 mg SLOW IVP Q8H PRN PRN Reason: SBP>170 Hydrochlorothiazide (Hydrochlorothiazide) 25 mg PO DAILY [facility] Last Admin: 03/13/17 08:31 Dose: 25 mg Sodium Chloride (Normal Saline 0.9%) 1,000 mls @ 75 mls/hr IV .[id number] [facility] Last Admin: 03/13/17 00:19 Dose: Not Given Ceftriaxone Sodium 2 gm/ (Sodium Chloride) 100 mls @ 200 mls/hr IVPB Q24HR [facility] Last Admin: 03/12/17 15:13 Dose: 100 mls Vancomycin HCl 750 mg/ Sodium (Chloride) 250 mls @ 250 mls/hr IVPB 2000 [facility] Last Admin: 03/12/17 20:35 Dose: 250 mls Labetalol HCl (Normodyne) 10 mg SLOW IVP Q8H PRN PRN Reason: SBP Greater Than 180 Miscellaneous Medication (Pharmacy To Dose) 1 each IVPB PRN PRN PRN Reason: . Olmesartan (Benicar) 40 mg PO DAILY [facility] Last Admin: 03/13/17 08:31 Dose: 40 mg Ondansetron HCl (Zofran Odt) 4 mg PO Q6H PRN PRN Reason: Nausea/Vomiting Pantoprazole Sodium (Protonix) 40 mg PO DAILY [facility] Last Admin: 03/13/17 08:32 Dose: 40 mg Sodium Chloride (Flush - Normal Saline) 10 ml IVF Q12HR [facility] Last Admin: 03/13/17 08:33 Dose: 10 ml Sodium Chloride (Flush - Normal Saline) 10 ml IVF PRN PRN PRN Reason: Saline Flush Tramadol HCl (Ultram) 50 mg PO Q6H PRN PRN Reason: Pain Last Admin: 03/12/17 01:07 Dose: 50 mg Trazodone HCl (Desyrel) 25 mg PO [facility] Last Admin: 03/12/17 20:36 Dose: 25 mg
[2017-03-13] MEDS: cefTRIAXone\\ROCEPHIN 2 GM in Sodium Chloride 0.9% 100 ML IVPB SCH (14:33)
[2017-03-13] MEDS: Vancomycin HCl 750 MG in Sodium Chloride 0.9% 250 ML 250 ML IVPB SCH (20:11)
[2017-03-13] MEDS: traZODone HCl 50 MG TAB PO SCH (20:12)
[2017-03-13] MEDS: traMADol HCl 50 MG TAB PO PRN (20:13)
[2017-03-14] MEDS: Acetaminophen 500 MG TAB PO SCH ×6 (01:55→20:03)
[2017-03-14] MEDS: Sodium Chloride 0.9% 1,000 ML IV SCH (05:22)
[2017-03-14] MEDS: Hydrochlorothiazide 25 MG TAB PO SCH (08:35)
[2017-03-14] MEDS: Carvedilol 25 MG TAB PO SCH (08:35)
[2017-03-14] MEDS: hydrALAZINE 25 MG TAB PO SCH ×2 (08:35→21:05)
[2017-03-14] MEDS: Ferrous Sulfate 325 MG TAB PO SCH ×2 (08:36→20:03)
--- NOTE | 2017-03-14 11:28 | PDOC.PN ---
- Subjective Encounter Start Date: 03/14/17 Encounter Start Time: 08:00 Pt seen for followup re; hypertension. No complaints. - Objective MAR Reviewed: Yes Vital Signs & Weight: Vital Signs (12 hours) Temp Pulse Resp BP BP Pulse Ox 03/14/17 08:35 179/74 H 03/14/17 07:45 98.2 F 79 18 179/74 H 94 L 03/14/17 05:59 98.2 F 79 16 178/70 H 92 L 03/14/17 00:37 98.1 F 81 15 169/75 H 95 Weight Weight 148 lb I&O: 03/13/17 03/14/17 03/15/17 06:59 06:59 06:59 Intake Total 2300 1830 Output Total 10 Balance 2290 1830 Result Diagrams: 03/11/17 17:23 03/11/17 17:23 Phys Exam - Physical Examination Constitutional: NAD HEENT: moist MMs Neck: supple Respiratory: clear to auscultation bilateral Cardiovascular: RRR Gastrointestinal: soft Neurological: moves all 4 limbs Psychiatric: normal affect Dx/Plan (1) HTN (hypertension) Code(s): I10 - ESSENTIAL (PRIMARY) HYPERTENSION Status: Chronic (2) GERD (gastroesophageal reflux disease) Code(s): K21.9 - GASTRO-ESOPHAGEAL REFLUX DISEASE WITHOUT ESOPHAGITIS Status: Chronic (3) Glaucoma Code(s): H40.9 - UNSPECIFIED GLAUCOMA Status: Chronic - Plan * . Continue home antihypertensives, PRN IV antihypertensives. Continue PPI. Review of Systems - Review of Systems Cardiovascular: negative: chest pain, palpitations, orthopnea, paroxysmal nocturnal dyspnea, edema, light headedness - Medications/Allergies Allergies/Adverse Reactions: Allergies Allergy/AdvReac Type Severity Reaction Status Date / Time No Known Allergies Allergy Unverified 02/19/17 11:18 Medications: Current Medications Acetaminophen (Tylenol) 500 mg PO Q4HR [facility] Last Admin: 03/14/17 08:35 Dose: 500 mg Albuterol/Ipratropium (Duoneb) 3 ml NEB Q4H PRN PRN Reason: SOB &/or Wheezing Carvedilol (Coreg) 25 mg PO QAM [facility] Last Admin: 03/14/17 08:35 Dose: 25 mg Ferrous Sulfate (Feosol) 325 mg PO BID [facility] Last Admin: 03/14/17 08:36 Dose: 325 mg Hydralazine HCl (Apresoline) 25 mg PO BID [facility] Last Admin: 03/14/17 08:35 Dose: 25 mg Hydralazine HCl (Apresoline) 10 mg SLOW IVP Q8H PRN PRN Reason: SBP>170 Hydrochlorothiazide (Hydrochlorothiazide) 25 mg PO DAILY [facility] Last Admin: 03/14/17 08:35 Dose: 25 mg Sodium Chloride (Normal Saline 0.9%) 1,000 mls @ 75 mls/hr IV .[id number] [facility] Last Admin: 03/14/17 05:22 Dose: Not Given Ceftriaxone Sodium 2 gm/ (Sodium Chloride) 100 mls @ 200 mls/hr IVPB Q24HR [facility] Last Admin: 03/13/17 14:33 Dose: 100 mls Vancomycin HCl 750 mg/ Sodium (Chloride) 250 mls @ 250 mls/hr IVPB 2000 [facility] Last Admin: 03/13/17 20:11 Dose: 250 mls Labetalol HCl (Normodyne) 10 mg SLOW IVP Q8H PRN PRN Reason: SBP Greater Than 180 Last Admin: 03/13/17 17:26 Dose: 10 mg Miscellaneous Medication (Pharmacy To Dose) 1 each IVPB PRN PRN PRN Reason: . Olmesartan (Benicar) 40 mg PO DAILY [facility] Last Admin: 03/14/17 08:35 Dose: 40 mg Ondansetron HCl (Zofran Odt) 4 mg PO Q6H PRN PRN Reason: Nausea/Vomiting Last Admin: 03/13/17 20:22 Dose: 4 mg Pantoprazole Sodium (Protonix) 40 mg PO DAILY [facility] Last Admin: 03/14/17 08:36 Dose: 40 mg Sodium Chloride (Flush - Normal Saline) 10 ml IVF Q12HR [facility] Last Admin: 03/13/17 20:12 Dose: 10 ml Sodium Chloride (Flush - Normal Saline) 10 ml IVF PRN PRN PRN Reason: Saline Flush Tramadol HCl (Ultram) 50 mg PO Q6H PRN PRN Reason: Pain Last Admin: 03/13/17 20:13 Dose: 50 mg Trazodone HCl (Desyrel) 25 mg PO HS [facility] Last Admin: 03/13/17 20:12 Dose: 25 mg
[2017-03-14] MEDS: cefTRIAXone\\ROCEPHIN 2 GM in Sodium Chloride 0.9% 100 ML IVPB SCH (14:10)
[2017-03-14 19:34] LABS: Vancomycin, Trough 10.2 ug/mL
[2017-03-14] MEDS: Vancomycin HCl 750 MG in Sodium Chloride 0.9% 250 ML 250 ML IVPB SCH (19:59)
[2017-03-14] MEDS: traMADol HCl 50 MG TAB PO PRN (20:03)
[2017-03-14] MEDS: traZODone HCl 50 MG TAB PO SCH (20:04)
[2017-03-15] MEDS: Acetaminophen 500 MG TAB PO SCH ×6 (00:05→20:17)
[2017-03-15] MEDS: hydrALAZINE 20 MG/ML VIAL SLOW IVP PRN (00:06)
[2017-03-15] MEDS: Sodium Chloride 0.9% 1,000 ML IV SCH ×3 (07:34→21:55)
[2017-03-15] MEDS: Ferrous Sulfate 325 MG TAB PO SCH ×2 (08:19→20:17)
[2017-03-15] MEDS: hydrALAZINE 25 MG TAB PO SCH ×2 (08:19→20:17)
[2017-03-15] MEDS: Hydrochlorothiazide 25 MG TAB PO SCH (08:20)
[2017-03-15] MEDS: Carvedilol 25 MG TAB PO SCH (08:20)
--- NOTE | 2017-03-15 11:25 | PDOC.PN ---
- Subjective Encounter Start Date: 03/15/17 Encounter Start Time: 07:40 Pt seen for followup re: diarrhea. Had two loose stools yesterday, no complaints today. - Objective MAR Reviewed: Yes Vital Signs & Weight: Vital Signs (12 hours) Temp Pulse Resp BP BP Pulse Ox 03/15/17 08:19 101 H 168/75 H 03/15/17 08:01 98.6 F 101 H 12 168/75 H 96 03/15/17 04:18 98.8 F 81 17 175/70 H 96 03/15/17 00:06 77 178/76 H 03/15/17 00:00 98.8 F 75 18 178/76 H 96 Weight Weight 148 lb I&O: 03/14/17 03/15/17 03/16/17 06:59 06:59 06:59 Intake Total 1830 2325 Output Total 1 Balance 1830 2324 Result Diagrams: 03/11/17 17:23 03/11/17 17:23 Phys Exam - Physical Examination Constitutional: NAD HEENT: moist MMs Neck: supple Respiratory: clear to auscultation bilateral Cardiovascular: RRR Gastrointestinal: soft, non-tender, positive bowel sounds Neurological: moves all 4 limbs Psychiatric: normal affect Dx/Plan (1) Diarrhea Code(s): R19.7 - DIARRHEA, UNSPECIFIED Status: Acute (2) HTN (hypertension) Code(s): I10 - ESSENTIAL (PRIMARY) HYPERTENSION Status: Chronic (3) GERD (gastroesophageal reflux disease) Code(s): K21.9 - GASTRO-ESOPHAGEAL REFLUX DISEASE WITHOUT ESOPHAGITIS Status: Chronic (4) Glaucoma Code(s): H40.9 - UNSPECIFIED GLAUCOMA Status: Chronic - Plan continue antibiotics, PT/OT, out of bed/ambulate * . Check stool studies, rule out C. diff, other infections. Monitor vital signs and titrate antihypertensives. Review of Systems - Review of Systems Cardiovascular: negative: chest pain, palpitations, orthopnea, paroxysmal nocturnal dyspnea, edema, light headedness Gastrointestinal: Diarrhea. negative: Nausea, Vomiting, Abdominal Pain, Constipation, Melena, Hematochezia - Medications/Allergies Allergies/Adverse Reactions: Allergies Allergy/AdvReac Type Severity Reaction Status Date / Time No Known Allergies Allergy Unverified 02/19/17 11:18 Medications: Current Medications Acetaminophen (Tylenol) 500 mg PO Q4HR [facility] Last Admin: 03/15/17 08:19 Dose: 500 mg Albuterol/Ipratropium (Duoneb) 3 ml NEB Q4H PRN PRN Reason: SOB &/or Wheezing Carvedilol (Coreg) 25 mg PO QAM [facility] Last Admin: 03/15/17 08:20 Dose: 25 mg Ferrous Sulfate (Feosol) 325 mg PO BID [facility] Last Admin: 03/15/17 08:19 Dose: 325 mg Hydralazine HCl (Apresoline) 25 mg PO BID [facility] Last Admin: 03/15/17 08:19 Dose: 25 mg Hydralazine HCl (Apresoline) 10 mg SLOW IVP Q8H PRN PRN Reason: SBP>170 Last Admin: 03/15/17 00:06 Dose: 10 mg Hydrochlorothiazide (Hydrochlorothiazide) 25 mg PO DAILY [facility] Last Admin: 03/15/17 08:20 Dose: 25 mg Sodium Chloride (Normal Saline 0.9%) 1,000 mls @ 75 mls/hr IV .[id number] [facility] Last Admin: 03/15/17 08:50 Dose: Not Given Ceftriaxone Sodium 2 gm/ (Sodium Chloride) 100 mls @ 200 mls/hr IVPB Q24HR [facility] Last Admin: 03/14/17 14:10 Dose: 100 mls Vancomycin HCl 1 gm/ Device 200 mls @ 200 mls/hr IVPB 2000 [facility] Labetalol HCl (Normodyne) 10 mg SLOW IVP Q8H PRN PRN Reason: SBP Greater Than 180 Last Admin: 03/13/17 17:26 Dose: 10 mg Miscellaneous Medication (Pharmacy To Dose) 1 each IVPB PRN PRN PRN Reason: . Olmesartan (Benicar) 40 mg PO DAILY [facility] Last Admin: 03/15/17 08:19 Dose: 40 mg Ondansetron HCl (Zofran Odt) 4 mg PO Q6H PRN PRN Reason: Nausea/Vomiting Last Admin: 03/13/17 20:22 Dose: 4 mg Pantoprazole Sodium (Protonix) 40 mg PO DAILY [facility] Last Admin: 03/15/17 08:19 Dose: 40 mg Sodium Chloride (Flush - Normal Saline) 10 ml IVF Q12HR [facility] Last Admin: 03/14/17 21:06 Dose: 10 ml Sodium Chloride (Flush - Normal Saline) 10 ml IVF PRN PRN PRN Reason: Saline Flush Tramadol HCl (Ultram) 50 mg PO Q6H PRN PRN Reason: Pain Last Admin: 03/14/17 20:03 Dose: 50 mg Trazodone HCl (Desyrel) 25 mg PO HS [facility] Last Admin: 03/14/17 20:04 Dose: 25 mg
[2017-03-15] MEDS: cefTRIAXone\\ROCEPHIN 2 GM in Sodium Chloride 0.9% 100 ML IVPB SCH (16:03)
[2017-03-15] MEDS ORDERED: Vancomycin HCl 1 GM in Premix Bag 1 BAG IVPB SCH (20:00)
[2017-03-15] MEDS: traZODone HCl 50 MG TAB PO SCH (20:17)
[2017-03-15] MEDS: traMADol HCl 50 MG TAB PO PRN (20:20)
[2017-03-16] MEDS: Acetaminophen 500 MG TAB PO SCH ×4 (01:13→12:12)
[2017-03-16] MEDS: traMADol HCl 50 MG TAB PO PRN (04:39)
[2017-03-16] MEDS: hydrALAZINE 20 MG/ML VIAL SLOW IVP PRN (05:10)
[2017-03-16] MEDS: Carvedilol 25 MG TAB PO SCH (08:57)
[2017-03-16] MEDS: hydrALAZINE 25 MG TAB PO SCH (08:57)
[2017-03-16] MEDS: Hydrochlorothiazide 25 MG TAB PO SCH (08:57)
[2017-03-16] MEDS: Ferrous Sulfate 325 MG TAB PO SCH (08:58)
[2017-03-16] MEDS ORDERED: Linezolid 600 MG TAB PO SCH (10:30)
--- NOTE | 2017-03-16 10:38 | PDOC.PN ---
- Subjective Encounter Start Date: 03/16/17 Encounter Start Time: 10:36 Patient seen and examined. No new complaints. No overnight events diarrhea resolved - Objective MAR Reviewed: Yes Vital Signs & Weight: Vital Signs (12 hours) Temp Pulse Resp BP BP Pulse Ox 03/16/17 08:57 91 169/68 H 03/16/17 07:15 98.7 F 91 16 169/68 H 97 03/16/17 06:15 169/85 H 03/16/17 05:10 79 175/85 H 03/16/17 04:00 98.4 F 79 19 169/88 H 94 L 03/16/17 00:42 98.6 F 76 16 155/68 H 95 Weight Weight 148 lb I&O: 03/15/17 03/16/17 03/17/17 06:59 06:59 06:59 Intake Total 2325 2225 Output Total 1 Balance 2324 2225 Result Diagrams: 03/11/17 17:23 03/11/17 17:23 Phys Exam - Physical Examination Constitutional: NAD HEENT: PERRLA Neck: no JVD Respiratory: no wheezing Cardiovascular: no significant murmur Gastrointestinal: non-tender Musculoskeletal: pulses present Neurological: normal sensation Psychiatric: A&O x 3 Dx/Plan (1) Diarrhea Code(s): R19.7 - DIARRHEA, UNSPECIFIED Status: Resolved (2) GERD (gastroesophageal reflux disease) Code(s): K21.9 - GASTRO-ESOPHAGEAL REFLUX DISEASE WITHOUT ESOPHAGITIS Status: Chronic (3) Glaucoma Code(s): H40.9 - UNSPECIFIED GLAUCOMA Status: Chronic (4) HTN (hypertension) Code(s): I10 - ESSENTIAL (PRIMARY) HYPERTENSION Status: Chronic - Plan * continue antibiotics, PT/OT, out of bed/ambulate * C. diff negative * doing well * continue current treatment * will sign off
[2017-03-16] MEDS: Sodium Chloride 0.9% 1,000 ML IV SCH (12:14)
[2017-03-16 13:32] VITALS: BP 148/61; TEMP 98.3
[2017-03-16] MEDS: cefTRIAXone\\ROCEPHIN 2 GM in Sodium Chloride 0.9% 100 ML IVPB SCH (14:49)
== END 2017-03-16 14:48 | DRG 863 ==
LOC: SURG A 16:11
PROVIDERS: ADMIT Orthopaedic Surgery; ATTEND Orthopaedic Surgery
PROC: 0J9L3ZZ Drainage of Right Upper Leg Subcutaneous Tissue and Fascia, Percutaneous Approach (ICD-10-PCS; principal; 2017-03-12)
DX: T81.4XXA Infection following a procedure, initial encounter (principal); H40.9 Unspecified glaucoma; I10 Essential (primary) hypertension; L08.9 Local infection of the skin and subcutaneous tissue, unspecified; K21.9 Gastro-esophageal reflux disease without esophagitis; Z85.048 Personal history of other malignant neoplasm of rectum, rectosigmoid junction, and anus; Z92.21 Personal history of antineoplastic chemotherapy; Z80.0 Family history of malignant neoplasm of digestive organs; Z82.49 Family history of ischemic heart disease and other diseases of the circulatory system; Z80.8 Family history of malignant neoplasm of other organs or systems; Y83.8 Other surgical procedures as the cause of abnormal reaction of the patient, or of later complication, without mention of misadventure at the time of the procedure; Y92.234 Operating room of hospital as the place of occurrence of the external cause
CPT/HCPCS: 36415; 80053; 80202; 81001; 85025; 85610; 85652; 85730; 86140; 87045; 87046; 87070; 87077; 87086; 87186; 87205; 87324; 87449; 87899; A4216; G8978-GP-CM; G8979-GP-CL; J0360; J0696; J1200; J2001; J2405; J2704; J3010; J3370; J7050; Q0162